=== PATIENT | male | born 1935 | race Caucasian/White ===

== ENCOUNTER 2018-02-11 08:38 | Inpatient (IN) | payer MEDICARE ==
[2018-02-10] MEDS: SODIUM CHLORIDE 0.9% 1000ML 1,000 ML IV SCH (22:00)
[~2018-02-11] VITALS: Ht 177.8 cm; Wt 72.1 kg
[~2018-02-11 08:38] MED LIST: ATENOLOL25 MG PO; PREVACID30 M1 PO; SYNTHROID150 MCG PO; ZOCOR20 MG PO
[2018-02-11] MEDS ORDERED: ONDANSETRON HCL INJ 2 MG/ML VIAL IV STA (08:48)
[2018-02-11] MEDS ORDERED: DICYCLOMINE HCL 20 MG/2 ML VIAL IM ONE (09:00)
[2018-02-11] MEDS ORDERED: SODIUM CHLORIDE 0.9% 1000ML 1,000 ML IV ONE (09:00)
[2018-02-11] MEDS ORDERED: HYDRALAZINE HCL 20 MG/ML VIAL IV ONE ×2 (09:00→10:30)
--- NOTE | 2018-02-11 09:00 | NUR ---
ASSUMED PTS CARE. PT IN ER 6.
[2018-02-11 09:08] LABS: BASOPHILS % 0.2 % (0.0-1.0); EOSINOPHILS % 0.1 % (0.0-6.0); HEMATOCRIT 45.6 % (38.2-49.6); HEMOGLOBIN 15.4 g/dL (14.0-18.0); LYMPHOCYTES # (AUTO) 0.7 (1.0-3.2); LYMPHOCYTES % 3.8 % (18.0-39.1); MEAN CORPUSCULAR HEMOGLOBIN 29.3 pg (28-32); MEAN CORPUSCULAR HGB CONC 33.8 g/dL (31-35); MEAN CORPUSCULAR VOLUME 86.7 fL (81-99); MONOCYTES # (AUTO) 1.1 (0.2-0.8); MONOCYTES % 6.4 % (4.4-11.3); NEUTROPHILS # (AUTO) 15.9 (2.1-6.9); NEUTROPHILS % 89.1 % (38.7-80.0); PLATELET COUNT 277 x10e3/uL (140-360); RED BLOOD COUNT 5.26 x10e6/uL (4.3-5.7)
[2018-02-11 09:30] LABS: ALBUMIN 4.5 g/dL (3.5-5.0); ALBUMIN/GLOBULIN RATIO 1.3 (0.8-2.0); ANION GAP 16.7 mmol/L (8-16); CALCIUM 9.9 mg/dL (8.4-10.2); CREATININE, SERUM 1.56 mg/dL (0.72-1.25); POTASSIUM 3.7 mmol/L (3.5-5.1)
--- NOTE | 2018-02-11 09:56 | Diagnostic Imaging Report ---
Abdomen, 3 views dated 02/11/2017 at 8:52 AM. History: <Abdominal pain>. Findings: Dilated loops of small bowel compatible with a distal small bowel obstruction. Minimal stool in the rectum and right colon. Right upper quadrant clips are present. There no masses or abnormal calcifications. No free air. Degenerative changes of the spine. IMPRESSION: Dilated loops of small bowel compatible with a small bowel obstruction. Signed by: Dr. Freeman Aquino DO on 02/11/2018 9:53 AM
--- NOTE | 2018-02-11 10:25 | NUR ---
PATIENT GIVEN A URINAL FOR URINE SAMPLE
[2018-02-11] MEDS ORDERED: DIATRIZOATE MEGL/DIATRIZOA SOD 30 ML BTL PO ONE (10:38)
[2018-02-11] MEDS ORDERED: IOPAMIDOL 370 MG/ML 200 ML INFUS..BTL INJ ONE (10:55)
[2018-02-11] MEDS ORDERED: SODIUM CHLORIDE 0.9% 50ML 50 ML ONE (10:55)
--- NOTE | 2018-02-11 11:27 | NUR ---
PT HAS TRIED SEVERAL TIMES TO URINATE BUT HAS BEEN UNABLE. SPOKE WITH ERP ABOUT DOING A STRAIGHT CATH IF PT CAN'T GO THIS TIME. HE IS ATTEMPTING TO USE THE URINAL AGAIN. WILL STRAIGHT CATH IF UNSUCESSFUL THIS TIME
[2018-02-11] MEDS ORDERED: PROMETHAZINE 12.5MG/ NACL 0.9% 12.5 MG/50 ML BAG IV ONE (11:30)
--- NOTE | 2018-02-11 11:30 | NUR ---
PT C/O NAUSEA FROM ORAL CONTRAST. NOTIFIED MD AND PHENERGAN ORDERED
--- NOTE | 2018-02-11 11:40 | NUR ---
PT WAS UNABLE TO URINATE. STRAIGHT CATH DONE. 80 ML OF URINE OUTPUT
[2018-02-11 12:39] LABS: BILIRUBIN,URINE NEGATIVE (NEGATIVE); CLARITY,URINE HAZY (CLEAR); COLOR,URINE YELLOW (YELLOW); KETONES,URINE NEGATIVE (NEGATIVE); LEUKOCYTE ESTERASE ,URINE NEGATIVE (NEGATIVE); NITRITE,URINE NEGATIVE (NEGATIVE); PROTEIN,URINE DIPSTICK 1+ (NEGATIVE); URINE UROBILINOGEN 0.2 mg/dL (0.2 - 1)
[2018-02-11 13:08] LABS: BACTERIA,URINE FEW /HPF; EPITHELIAL CELLS,URINE RARE /LPF
[2018-02-11] MEDS ORDERED: SODIUM CHLORIDE 0.9% 1000ML 1,000 ML IV SCH (14:30)
[2018-02-11] MEDS: ERTAPENEM 1GM/NS 100ML 100 ML IV SCH (14:30)
[2018-02-11] MEDS ORDERED: MORPHINE SULFATE 5 MG/ML VIAL IV PRN (14:30)
[2018-02-11] MEDS ORDERED: PROMETHAZINE 12.5MG/ NACL 0.9% 12.5 MG/50 ML BAG IV PRN (14:30)
--- NOTE | 2018-02-11 14:43 | Diagnostic Imaging Report ---
EXAM: CT Abdomen and Pelvis WITH contrast INDICATION: ^SBO ^[id number] ^1225 COMPARISON: Same day abdominal x-ray TECHNIQUE: Abdomen and pelvis were scanned utilizing a multidetector helical scanner from the lung base to the pubic symphysis after administration of IV contrast. Coronal and sagittal reformations were obtained. Dose modulation, iterative reconstruction, and/or weight based adjustment of the mA/kV was utilized to reduce the radiation dose to as low as reasonably achievable. Routine protocol was performed. Scan was performed when during portal venous phase. IV CONTRAST: 100 mL of Isovue-370 ORAL CONTRAST: Gastroview COMPLICATIONS: None RADIATION DOSE: Total DLP: 649.53 mGy*cm Estimated effective dose: (DLP x 0.015 x size factor) mSv CTDIvol has been reviewed. It is below the limits set by the Radiation Protocol Committee (RPC). FINDINGS: LINES and TUBES: None. LOWER THORAX: Cluster of right middle lobe calcified granulomas. Tiny anterior right middle lobe nodule (series 2, image 3). Mild lingular scarring with traction bronchiectasis. HEPATOBILIARY: No focal hepatic lesions. Moderate intra and extrahepatic biliary dilatation. GALLBLADDER: Surgically absent. SPLEEN: No splenomegaly. PANCREAS: No focal masses or ductal dilatation. ADRENALS: No adrenal nodules KIDNEYS/URETERS: Right nephrectomy. No left renal mass or stone. No left hydronephrosis. GI TRACT: Dilated air and fluid-filled small bowel loops throughout the abdomen with collapsed distal ileal and colon. There is transition point in right lower abdomen (series 2, image 46). Appendix is not visualized with certainty. PELVIC ORGANS/BLADDER: Markedly enlarged heterogeneous prostate gland. Bladder is, limiting evaluation. LYMPH NODES: No lymphadenopathy. VESSELS: There is mild atherosclerotic disease in the aorta and major arterial branches. PERITONEUM / RETROPERITONEUM: No free air. Trace ascites. BONES: Degenerative changes of spine. SOFT TISSUES: Small bilateral inguinal hernias, containing ascitic fluid on the left side. IMPRESSION: 1. High-grade small bowel obstruction. 2. Intra and extrahepatic biliary dilatation which could be partially due to reservoir effect and age. 3. Markedly enlarged prostate gland. Signed by: Dr. Nixon Hinkle MD on 02/11/2018 2:40 PM
[2018-02-11] MEDS: MORPHINE SULFATE INJ 4 MG/ML INJ IV PRN ×2 (14:50→21:37)
[2018-02-11] MEDS: SODIUM CHLORIDE 0.9% 1000ML 1,000 ML IV SCH ×2 (15:24→22:00)
[2018-02-11] MEDS ORDERED: LIDOCAINE JELLY 2% 10ML URO-JET ONE (15:26)
[2018-02-11] MEDS ORDERED: BENZOCAINE/TETRACAINE/BUTAMBEN AERO SPRAY 56 GM CAN ONE (15:26)
[2018-02-11] MEDS ORDERED: SODIUM CHLORIDE FLUSH 10 ML SYR INJ PRN (15:30)
--- OUTSIDE RECORDS SUMMARY | 2018-02-11 15:39 | XMS REPORT ---
Author Author [facility] Address Unknown Phone Unavailable Care Team Providers [employer] Worker Name Role Phone Pauline PRIDE Unavailable Unavailable Problems This patient has no known problems. Allergies, Adverse Reactions, Alerts This patient has no known allergies or adverse reactions. Medications This patient has no known medications. Results Test Description Test Time Test Comments Text Results Atomic Results Result Comments CT ABDOMEN/PELVIS W 2018-02-11 14:00:00 [place] [address] Patient Name: BENJAMIN MURRAY MR #: [id number] : 1935 Age/Sex: 82/M Req #: [id number] Adm Physician: Ordered by: NICK PRDIE MD Report #: [id number] Location: ER Room/Bed: Procedure: [id number] CT/CT ABDOMEN/PELVIS W Exam Date: 02/11/18 Exam Time: 1225 REPORT STATUS: Signed EXAM: CT Abdomen and Pelvis WITH contrast MACARIO CATION: SBO [id number] 1225 COMPARISON: Same day abdominal x-ray TECHNIQUE: Abdomen and pelvis were scanned utilizing a multidetector helical scanner from the lung base to the pubic symphysis after administration of IV contrast. Coronal and sagittal reformations were obtained. Dose modulation, iterative reconstruction, and/or weight based adjustment of the mA/kV was utilized to reduce the radiation dose to as low as reasonably achievable. Routine protocol was performed. Scan was performed when during portal venous phase. IV CONTRAST: 100 mL of Isovue-370 ORAL CONTRAST: Gastroview COMPLICATIONS: None RADIATION DOSE: Total DLP: 649.53 mGy*cm Estimated effective dose: (DLP x 0.015 x size factor) mSv CTDIvol has been reviewed. It is below the limits set by the Radiation Protocol Committee (RPC). FINDINGS: LINES and TUBES: None. LOWER THORAX: Cluster of right middle lobe calcified granulomas. Tiny anterior right middle lobe nodule (series 2, image 3). Mild lingular scarring with traction bronchiectasis. HEPATOBILIARY: No focal hepatic lesions. Moderate intra and extrahepatic biliary dilatation. GALLBLADDER: Surgically absent. SPLEEN: No splenomegaly. PANCREAS: No focal masses or ductal dilatation. ADRENALS: No adrenal nodules KIDNEYS/URETERS: Right nephrectomy. No left renal mass or stone. No left hydronephrosis. GI TRACT: Dilated air and fluid-filled small bowel loops throughout the abdomen with collapsed distal ileal and colon. There is transition point in right lower abdomen (series 2, image 46). Appendix is not visualized with certainty. PELVIC ORGANS/BLADDER: Markedly enlarged heterogeneous prostate gland. Bladder is, limiting evaluation. LYMPH NODES: No lymphadenopathy. VESSELS: There is mild atherosclerotic disease in the aorta and major arterial branches. PERITONEUM / RETROPERITONEUM: No free air. Trace ascites. BONES: Degenerative changes of spine. SOFT TISSUES: Small bilateral inguinal hernias, containing ascitic fluid on the left side. IMPRESSION: 1. High-grade small bowel obstruction. 2. Intra and extrahepatic biliary dilatation which could be partially due to reservoir effect and age. 3. Markedly enlarged prostate gland. Signed by: Dr. Nixon Bateman MD on 02/11/2018 2:40 PM Dictated By: NIXON BATEMAN MD 1440 Transcribed By: TITI on 02/11/18 1440 COPY TO: NICK PRIDE MD ABDOMEN 2 VIEW 2018-02-11 09:50:00 [place] [address] Patient Name: BENJAMIN MURRAY MR #: [id number] : 1935 Age/Sex: 82/M Req #: [id number] Adm Physician: Ordered by: NICK PRIDE MD Report #: [id number] Location: ER Room/Bed: Procedure: [id number] DX/ABDOMEN 2 VIEW Exam Date: 02/11/18 Exam Time: 909 REPORT STATUS: Signed Abdomen, 3 views dated 02/11/2017 at 8:52 AM. History: <Abdominal pain>. Findings: Dilated loops of small bowel compatible with a distal small bowel obstruction. Minimal stool in the rectum and right colon. Right upper quadrant clips are present. There no masses or abnormal calcifications. No free air. Degenerative changes of the spine. IMPRESSION: Dilated loops of small bowel compatible with a small bowel obstruction. Signed by: Dr. Henok Aquino DO on 02/11/2018 9:53 AM Dictated By: HENOK AQUINO DO 2 Transcribed By: TITI on 02/11/18952 COPY TO: NICK PRIDE MD
[2018-02-11] MEDS: SODIUM CHLORIDE 0.9% 250ML IRRIG IR SCH ×2 (16:00→22:37)
--- NOTE | 2018-02-11 17:01 | Diagnostic Imaging Report ---
EXAM: Abdomen 1 View INDICATION: ^NG Tube placement ^[id number] ^1550 COMPARISON: Same day CT and x-ray. IMPRESSION: Dedicated x-ray to confirm nasogastric tube placement. No definite nasogastric tube is visualized. Linear density, extending from medial left lower lung field to the left upper quadrant, less likely to represent nasogastric tube. Please correlate clinically and consider repositioning of nasogastric tube and follow-up x-ray. There is also partial visualization of a tube overlying the left hemithorax, likely external to patient. Signed by: Dr. Nixon Hinkle MD on 02/11/2018 4:57 PM
[2018-02-11] MEDS ORDERED: BENZOCAINE 20% SPR 60 ML CAN MT PRN (17:30)
[2018-02-11 18:48] VITALS: BP 153/67
--- NOTE | 2018-02-11 19:07 | Consultation ---
DATE OF CONSULTATION: February 11, 2018 CHIEF COMPLAINT: Abdominal pain, vomiting. HISTORY OF PRESENT ILLNESS: The patient is an 82-year-old male with 1 day history of periumbilical abdominal pain, cramping in nature with several episodes of vomiting without hematemesis. Last bowel movement was yesterday. He denies fevers or chills. Patient related that in the last 6 months, he has had increased abdominal cramps and no vomiting. PAST MEDICAL HISTORY: Significant for hypertension, hyperlipidemia, hypothyroidism, GERD. SURGICAL HISTORY: Positive for cholecystectomy, appendectomy, right nephrectomy, thyroid cancer surgery, and gastrostomy tube placement. ALLERGIES: PATIENT IS ALLERGIC TO PENICILLIN. REVIEW OF SYSTEMS: No chest pain or shortness of breath. PHYSICAL EXAMINATION VITALS: Stable. Afebrile. GENERAL: He is awake, alert and in moderate discomfort. HEENT: Sclerae anicteric. NECK: Supple. LUNGS: Clear. HEART: Regular rate and rhythm. ABDOMEN: Distended with some guarding in the periumbilical area without rebound. EXTREMITIES: Without cyanosis or edema. LABORATORY STUDIES: White cell count 17, hemoglobin of 15, creatinine of 1.5. CT of the abdomen showed high-grade obstruction with transition point in right lower quadrant. ASSESSMENT: Recurrent small bowel obstruction likely secondary to adhesions. PLAN: NG tube placement with IV hydration, repeat abdominal x-ray and exam. Job#: [id number] RTY
[2018-02-11 19:35] VITALS: BP 146/67
--- NOTE | 2018-02-11 21:05 | NUR ---
Assisted pt to the restroom. Pt voided and had loose brown bm at this time.
--- NOTE | 2018-02-11 21:30 | NUR ---
Assisted pt to the restroom. Pt with multiple loose brown bowel movements at this time.
[2018-02-12] VITALS (9 sets, daily range): BP systolic 111–146; BP diastolic 58–65
[2018-02-12] MEDS: SODIUM CHLORIDE 0.9% 250ML IRRIG IR SCH ×2 (03:45→05:00)
[2018-02-12 06:12] LABS: BASOPHILS % 0.4 % (0.0-1.0); EOSINOPHILS % 0.4 % (0.0-6.0); HEMATOCRIT 36.5 % (38.2-49.6); HEMOGLOBIN 12.3 g/dL (14.0-18.0); LYMPHOCYTES # (AUTO) 1.6 (1.0-3.2); LYMPHOCYTES % 15.5 % (18.0-39.1); MEAN CORPUSCULAR HEMOGLOBIN 29.4 pg (28-32); MEAN CORPUSCULAR HGB CONC 33.7 g/dL (31-35); MEAN CORPUSCULAR VOLUME 87.3 fL (81-99); MONOCYTES % 9.6 % (4.4-11.3); NEUTROPHILS # (AUTO) 7.7 (2.1-6.9); NEUTROPHILS % 73.5 % (38.7-80.0); PLATELET COUNT 208 x10e3/uL (140-360); RED BLOOD COUNT 4.18 x10e6/uL (4.3-5.7); RED CELL DISTRIBUTION WIDTH 14.5 % (11.7-14.4)
[2018-02-12 06:39] LABS: ALBUMIN/GLOBULIN RATIO 1.2 (0.8-2.0); ANION GAP 11.5 mmol/L (8-16); CALCIUM 7.9 mg/dL (8.4-10.2); CREATININE, SERUM 1.17 mg/dL (0.72-1.25); POTASSIUM 3.5 mmol/L (3.5-5.1)
--- NOTE | 2018-02-12 07:33 | Progress Note ---
DATE: SUBJECTIVE: Patient is here for small bowel obstruction, an 82-year-old male, came in with abdominal pain. Currently, pain is better. Patient continues to have some movement in the bowel he says and also flatus present. Patient's pain is controlled. PHYSICAL EXAMINATION VITAL SIGNS: Temperature is 97, afebrile, T-max of 98.3, pulse of 67, respirations of 20, and blood pressure 133/63 with a pulse oximetry of 96% on 2 liters of oxygen. GENERAL: Patient is alert and oriented x3. NG tube for suction. CVS: S1 and S2 normal. Regular rate and rhythm. LUNGS: Clear to auscultation bilaterally. ABDOMEN: Nontender and nondistended. Bowel sounds are very sluggish. EXTREMITIES: No clubbing. No cyanosis. No edema. IMAGING STUDIES: CT scan shows high-grade small bowel obstruction, intra and extrahepatic biliary dilatation, and markedly enlarged prostate gland. LABORATORY VALUES: Patient's white count was 17,000, down to 10.48; left shift is better 89.1 to 73.5 of neutrophils. Sodium is 139, potassium is 3.5, BUN of 20, creatinine of 1.17, and glucose of 95. ALT, AST, and alk phos has been normal. Lipase is 6. ASSESSMENT AND PLAN 1. Small bowel obstruction: The patient will continue on nasogastric tube. We will keep him n.p.o. We will have a KUB today to further assess his small bowel obstruction. 2. Acute kidney injury, resolved. 3. Hypertension: We will continue monitoring his blood pressures. If needed, IV hydralazine will be given. MEDICATIONS: At this time, patient is on ertapenem q.4h. and morphine sulfate for pain control. For further information, look into the chart. Further recommendations per clinical course. Job#: [id number] LIUDMILA
--- NOTE | 2018-02-12 08:04 | NUR ---
Pt received in bed with eyes open. Pt is aox4 and able to verbalize needs. Complains of soreness to back of throat r/t ngtube placement. Denies any nausea at this time. Continues on IVF NS@125ml/hr and well tolerated.
--- NOTE | 2018-02-12 08:07 | Diagnostic Imaging Report ---
Abdomen/KUB INDICATION: ^SBO ^[id number] ^0720 COMPARISON: CT and abdominal x-ray 02/11/2018. FINDINGS: Portable, supine image obtained at 0708 hours. Medical Devices: No enteric tube is visualized. Cholecystectomy clips in the right upper quadrant. Bowel: Gaseous dilatation of the small bowel has improved. There is barium throughout the colon. The colon is not dilated. No pneumatosis. Calcifications: No calcifications over the renal shadows or along the expected course of the ureters. Organomegaly: None Lung bases: Clear There is excreted contrast in the bladder from CT. Bones: Unremarkable IMPRESSION: Improved small bowel dilatation. Passage of barium into the large bowel suggestive of partial small bowel obstruction. Signed by: Dr. Shala Reyes MD on 02/12/2018 8:04 AM
--- NOTE | 2018-02-12 11:00 | NUR ---
NGtube removed per physician orders. Pt started on clear liquid diet and tolerated well.
[2018-02-12] MEDS: ERTAPENEM 1GM/NS 100ML 100 ML IV SCH (14:30)
[2018-02-12] MEDS ORDERED: ASPIRIN CHEW81 MG PO (21:21)
--- NOTE | 2018-02-12 22:10 | NUR ---
Provided some jello per pt's request. Pt tolerating clear liquid diet well without nausea/vomiting. Call light within reach. Will continue to monitor.
[2018-02-13] VITALS: BP 128/59
--- NOTE | 2018-02-13 00:33 | NUR ---
Assisted pt to the restroom. Pt with unsteady gait. Pt voided.
[2018-02-13 05:19] VITALS: BP 103/55
[2018-02-13] MEDS: SODIUM CHLORIDE 0.9% 1000ML 1,000 ML IV SCH ×2 (06:10→07:24)
[2018-02-13 06:39] LABS: BASOPHILS % 0.2 % (0.0-1.0); EOSINOPHILS % 0.3 % (0.0-6.0); HEMOGLOBIN 11.8 g/dL (14.0-18.0); LYMPHOCYTES # (AUTO) 1.4 (1.0-3.2); MEAN CORPUSCULAR HEMOGLOBIN 29.4 pg (28-32); MEAN CORPUSCULAR HGB CONC 33.7 g/dL (31-35); MEAN CORPUSCULAR VOLUME 87.3 fL (81-99); MONOCYTES # (AUTO) 0.8 (0.2-0.8); MONOCYTES % 6.4 % (4.4-11.3); NEUTROPHILS # (AUTO) 9.6 (2.1-6.9); NEUTROPHILS % 80.7 % (38.7-80.0); PLATELET COUNT 174 x10e3/uL (140-360); RED BLOOD COUNT 4.01 x10e6/uL (4.3-5.7); RED CELL DISTRIBUTION WIDTH 14.3 % (11.7-14.4)
[2018-02-13 06:54] LABS: ALANINE AMINOTRANSFERASE 14 IU/L (0-55); ALBUMIN 2.6 g/dL (3.5-5.0); ALBUMIN/GLOBULIN RATIO 1.2 (0.8-2.0); ALKALINE PHOSPHATASE 45 IU/L (40-150); ANION GAP 10.3 mmol/L (8-16); BLOOD UREA NITROGEN 15 mg/dL (7-26); BUN/CREATININE RATIO 14 (6-25); CALCIUM 7.5 mg/dL (8.4-10.2); CARBON DIOXIDE 25 mmol/L (22-29); CHLORIDE 105 mmol/L (98-107); CREATININE, SERUM 1.05 mg/dL (0.72-1.25); EST GLOMERULAR FILTRATION RATE > 60 ML/MIN (60-); GLUCOSE 101 mg/dL (74-118); MAGNESIUM 1.8 MG/DL (1.3-2.1); POTASSIUM 3.3 mmol/L (3.5-5.1); SODIUM 137 mmol/L (136-145)
[2018-02-13] MEDS ORDERED: POTASSIUM CHLORIDE 20 MEQ TAB CR PO ONE (07:30)
[2018-02-13 08:00] VITALS: BP 106/55
[2018-02-13] MEDS: PANTOPRAZOLE SOD 40 MG TABEC PO SCH (08:05)
[2018-02-13] MEDS: LEVOTHYROXINE SODIUM 75 MCG TAB PO SCH (08:05)
[2018-02-13 08:20] VITALS: BP 106/55
--- NOTE | 2018-02-13 08:37 | Progress Note ---
DATE: SUBJECTIVE: Patient is here for small bowel obstruction. Patient's NG tube had been removed. He has been started on some clear liquid diet. He has been tolerating it without any problems. He has had no bowel movements, but good flatus. Patient currently has no other complaints. PHYSICAL EXAMINATION VITAL SIGNS: Temperature is 97.6, T-max is 100.2, pulse of 61, respirations of 18, blood pressure is 103/55. HEENT: Normocephalic, atraumatic. Pupils are reactive to light and accommodation. CVS: S1, S2 normal. Regular rate and rhythm. ABDOMEN: Nontender, nondistended. Bowels sounds are positive. EXTREMITIES: No clubbing, no cyanosis, and no edema. LABORATORY VALUES: White count is 11,000, hemoglobin of 11.8, hematocrit of 35.8. Neutrophil count is on the down side. Chemistries; sodium 137, potassium of 3.3, BUN 15, creatinine of 1.05, calcium is 7.49, magnesium 1.9, bilirubin has gone up to 1.5. ALT, AST, and alkaline phosphatase have been normal. ASSESSMENT AND PLAN 1. Small bowel obstruction, status post nasogastric tube, doing better. 2. Acute kidney injury, resolved. 3. Hypertension. Continue with cardiovascular medications. 4. Hypothyroidism. We will restart his medication with sips of water. Patient currently is also on ertapenem and also morphine for pain control. We will continue with those and the last KUB done yesterday shows improved small bowel obstruction. Patient can be advanced to a full liquid diet today. Further recommendation per clinical course. We will continue monitoring the patient and restart his home medications with sips of water. Job#: [id number] NANCY
[2018-02-13] MEDS: ATENOLOL 50 MG TAB PO SCH (09:00)
[2018-02-13] MEDS: ERTAPENEM 1GM/NS 100ML 100 ML IV SCH (14:19)
[2018-02-13 17:31] VITALS: BP 141/67
[2018-02-13 21:49] VITALS: BP 125/61
[2018-02-14 01:11] VITALS: BP 158/70
[2018-02-14 05:38] VITALS: BP 153/69
[2018-02-14 05:52] LABS: BASOPHILS % 0.2 % (0.0-1.0); EOSINOPHILS # (AUTO) 0.2 (0.0-0.4); EOSINOPHILS % 4.1 % (0.0-6.0); HEMATOCRIT 35.8 % (38.2-49.6); HEMOGLOBIN 12.1 g/dL (14.0-18.0); LYMPHOCYTES # (AUTO) 1.2 (1.0-3.2); LYMPHOCYTES % 20.8 % (18.0-39.1); MEAN CORPUSCULAR HEMOGLOBIN 29.6 pg (28-32); MEAN CORPUSCULAR HGB CONC 33.8 g/dL (31-35); MEAN CORPUSCULAR VOLUME 87.5 fL (81-99); MONOCYTES # (AUTO) 0.7 (0.2-0.8); MONOCYTES % 12.4 % (4.4-11.3); NEUTROPHILS # (AUTO) 3.6 (2.1-6.9); NEUTROPHILS % 62.2 % (38.7-80.0); PLATELET COUNT 174 x10e3/uL (140-360); RED BLOOD COUNT 4.09 x10e6/uL (4.3-5.7); RED CELL DISTRIBUTION WIDTH 13.9 % (11.7-14.4)
[2018-02-14 06:13] LABS: ANION GAP 10.5 mmol/L (8-16); BLOOD UREA NITROGEN 15 mg/dL (7-26); BUN/CREATININE RATIO 15 (6-25); CALCIUM 7.9 mg/dL (8.4-10.2); CARBON DIOXIDE 27 mmol/L (22-29); CHLORIDE 109 mmol/L (98-107); CREATININE, SERUM 1.03 mg/dL (0.72-1.25); EST GLOMERULAR FILTRATION RATE > 60 ML/MIN (60-); GLUCOSE 104 mg/dL (74-118); POTASSIUM 3.5 mmol/L (3.5-5.1); SODIUM 143 mmol/L (136-145)
--- NOTE | 2018-02-14 08:20 | NUR ---
DISCHARGE INSTRUCTIONS GIVEN, PT VERBALIZED UNDERSTANDING. PT IV DC. PRESSURE DRESSING APPLIED AND TAPED. PT IS READY FOR DC. WILL EAT BREAKFAST FIRST
[2018-02-14] MEDS: PANTOPRAZOLE SOD 40 MG TABEC PO SCH (08:21)
[2018-02-14] MEDS: LEVOTHYROXINE SODIUM 75 MCG TAB PO SCH (08:21)
[2018-02-14] MEDS: ATENOLOL 50 MG TAB PO SCH (08:22)
[2018-02-14 08:47] VITALS: BP 165/73
[2018-02-14 09:22] VITALS: BP 165/73
--- NOTE | 2018-02-14 09:22 | NUR ---
PT OFF UNIT VIA WHEEL CHAIR TO HOME
== END 2018-02-14 09:25 | disposition home or self-care (01) | DRG 389 ==
LOC: ER 08:38 → ERHOLD 15:37 → MED/SURG 18:13
PROVIDERS: ADMIT Internal Medicine; ATTEND Internal Medicine
DX: K56.50 Intestinal adhesions [bands], unspecified as to partial versus complete obstruction (principal); N17.9 Acute kidney failure, unspecified; I12.9 Hypertensive chronic kidney disease with stage 1 through stage 4 chronic kidney disease, or unspecified chronic kidney disease; N18.3 Chronic kidney disease, stage 3 (moderate); E03.9 Hypothyroidism, unspecified; K21.9 Gastro-esophageal reflux disease without esophagitis
CPT/HCPCS: 36415; 74018; 74019; 74177; 80048; 80053; 81001; 83690; 83735; 84484; 85025; 96361; 99284; J0360; J0500; J2270; J2405; J2550; J7030; Q9967

== ENCOUNTER 2019-01-19 12:28 | Emergency (ER) | payer MEDICARE ==
[~2019-01-19] VITALS: Ht 177.8 cm; Wt 72.1 kg
[~2019-01-19 12:28] MED LIST changes: +ASPIRIN CHEW81 MG PO
--- NOTE | 2019-01-19 12:37 | NUR ---
DR ALEXANDER PRESENT IN TRIAGE WITH ULTRASOUND TO CHECK FOR URINARY RETENTION
[2019-01-19 13:40] VITALS: BP 139/59
== END 2019-01-19 13:45 | disposition home or self-care (01) ==
LOC: ER 12:28
DX: R33.9 Retention of urine, unspecified (principal); N40.1 Benign prostatic hyperplasia with lower urinary tract symptoms
CPT/HCPCS: 99283

== ENCOUNTER 2019-01-25 22:59 | Emergency (ER) | payer MEDICARE ==
[~2019-01-25] VITALS: Ht 177.8 cm; Wt 72.1 kg
[2019-01-26 02:25] LABS: CLARITY,URINE CLOUDY (CLEAR); COLOR,URINE AMBER (YELLOW); KETONES,URINE NEGATIVE (NEGATIVE); LEUKOCYTE ESTERASE ,URINE TRACE (NEGATIVE); NITRITE,URINE POSITIVE (NEGATIVE); PROTEIN,URINE DIPSTICK 2+ (NEGATIVE); URINE UROBILINOGEN 0.2 mg/dL (0.2 - 1)
[2019-01-26 02:26] LABS: BACTERIA,URINE MANY /HPF; BILIRUBIN,URINE 1+ (NEGATIVE); EPITHELIAL CELLS,URINE FEW /LPF; RBC,URINE >50 /HPF (0-5); WBC,URINE (MAN) 21-50 /HPF (0-5)
[2019-01-26] MEDS ORDERED: CEFTRIAXONE SOD 1 GM VIAL IM ONE (02:30)
[2019-01-26] MEDS ORDERED: CEFTRIAXONE SOD 1 GM VIAL ONE (02:42)
[2019-01-26 03:03] VITALS: BP 135/76
== END 2019-01-26 03:13 | disposition home or self-care (01) ==
LOC: ER 22:59
DX: R33.9 Retention of urine, unspecified (principal); N40.1 Benign prostatic hyperplasia with lower urinary tract symptoms; N30.91 Cystitis, unspecified with hematuria; I10 Essential (primary) hypertension; E03.9 Hypothyroidism, unspecified; K21.9 Gastro-esophageal reflux disease without esophagitis; Z85.850 Personal history of malignant neoplasm of thyroid
CPT/HCPCS: 81001; 87086; 87186; 99282; J0696

== ENCOUNTER 2019-02-24 18:41 | Emergency (ER) | payer MEDICARE ==
[~2019-02-24] VITALS: Ht 177.8 cm; Wt 72.1 kg
--- NOTE | 2019-02-24 19:55 | NUR ---
PTS BLADDER SCANNED AT THIS TIME, PT FOUND TO HAVE GREATER THAN 999CC OF URINE IN BLADDER.
[2019-02-24] MEDS ORDERED: LIDOCAINE JELLY 2% 10ML URO-JET TOP ONE (20:00)
--- NOTE | 2019-02-24 20:15 | NUR ---
20F COUDE PLACED AT THIS TIME, PT TOLERATED WELL. 600 CC CLEAR YELLOW URINE OUT, DR PEOPLES NOTIFIED.
[2019-02-24 20:22] LABS: BASOPHILS % 0.1 % (0.0-1.0); EOSINOPHILS % 0.3 % (0.0-6.0); HEMATOCRIT 39.7 % (38.2-49.6); HEMOGLOBIN 13.3 g/dL (14.0-18.0); LYMPHOCYTES # (AUTO) 1.3 (1.0-3.2); LYMPHOCYTES % 12.3 % (18.0-39.1); MEAN CORPUSCULAR HGB CONC 33.5 g/dL (31-35); MEAN CORPUSCULAR VOLUME 86.5 fL (81-99); MONOCYTES # (AUTO) 1.1 (0.2-0.8); MONOCYTES % 10.3 % (4.4-11.3); NEUTROPHILS # (AUTO) 7.8 (2.1-6.9); NEUTROPHILS % 76.6 % (38.7-80.0); PLATELET COUNT 221 x10e3/uL (140-360); RED BLOOD COUNT 4.59 x10e6/uL (4.3-5.7); RED CELL DISTRIBUTION WIDTH 14.4 % (11.7-14.4)
[2019-02-24 20:37] LABS: ANION GAP 14.8 mmol/L (8-16); CALCIUM 9.4 mg/dL (8.4-10.2); CREATININE, SERUM 1.29 mg/dL (0.72-1.25); POTASSIUM 3.8 mmol/L (3.5-5.1)
[2019-02-24 20:38] LABS: CLARITY,URINE CLEAR (CLEAR); COLOR,URINE YELLOW (YELLOW)
[2019-02-24 20:39] LABS: BILIRUBIN,URINE NEGATIVE (NEGATIVE); EPITHELIAL CELLS,URINE FEW /LPF; KETONES,URINE NEGATIVE (NEGATIVE); LEUKOCYTE ESTERASE ,URINE NEGATIVE (NEGATIVE); NITRITE,URINE NEGATIVE (NEGATIVE); PROTEIN,URINE DIPSTICK NEGATIVE (NEGATIVE); RBC,URINE 0-5 /HPF (0-5); URINE UROBILINOGEN 0.2 mg/dL (0.2 - 1); WBC,URINE (MAN) 0-5 /HPF (0-5)
--- NOTE | 2019-02-24 21:39 | Diagnostic Imaging Report ---
EXAM: CT Abdomen and Pelvis WITHOUT contrast INDICATION: ^flank pain ^[id number] ^2101 ^Y COMPARISON: CT dated 01/05/2019 TECHNIQUE: Abdomen and pelvis were scanned utilizing a multidetector helical scanner from the lung base to the pubic symphysis without administration of IV contrast. Absence of intravenous contrast decreases sensitivity for detection of focal lesions and vascular pathology. Coronal and sagittal reformations were obtained. Routine protocol was performed. IV CONTRAST: None ORAL CONTRAST: None COMPLICATIONS: None RADIATION DOSE: Total DLP: 204.62 mGy*cm Estimated effective dose: (DLP x 0.015 x size factor) mSv CTDIvol has been reviewed. It is below the limits set by the Radiation Protocol Committee (RPC). FINDINGS: LINES and TUBES: Miguel catheter. LOWER THORAX: Bibasilar mild bronchiectasis, patchy, groundglass airspace opacities. HEPATOBILIARY: Unenhanced liver is unremarkable. Mild to moderate intra and extrahepatic biliary dilatation. Common bile duct is distended up to 1.3 cm. GALLBLADDER: Surgically absent. SPLEEN: No splenomegaly. PANCREAS: No focal masses or ductal dilatation. ADRENALS: No adrenal nodules KIDNEYS/URETERS: Right nephrectomy. Limited for evaluation of left renal parenchyma without intravenous contrast. No left renal stone or hydronephrosis. Mildly dilated left renal pelvis. GI TRACT: No abnormal distention, wall thickening, or evidence of bowel obstruction. Appendix is not visualized. Small hiatal hernia. PELVIC ORGANS/BLADDER: Markedly enlarged prostate. Bladder is collapsed by a Miguel catheter in place, containing moderate amount of air. Pelvic phleboliths. LYMPH NODES: No lymphadenopathy. VESSELS: There is moderate atherosclerotic disease in the aorta and major arterial branches. PERITONEUM / RETROPERITONEUM: No free air or fluid. BONES: No acute osseous abnormality. Grade 1 retrolisthesis of L5 in relation to L4. Degenerative changes of the bilateral hips. SOFT TISSUES: Small fat-containing left inguinal hernia. IMPRESSION: 1. Bilateral lower lung patchy and groundglass airspace opacities, representing infectious/inflammatory process. 2. No left nephrolithiasis or evidence of obstructive urolithiasis. 3. Redemonstration of markedly enlarged prostate. Bladder is collapsed by a Miguel catheter in place, limiting evaluation. 4. Not significantly changed biliary dilatation, which could be due to postcholecystectomy reservoir effect. Signed by: Dr. Nixon Hinkle MD on 02/24/2019 9:37 PM
[2019-02-24] MEDS ORDERED: ACETAMINOPHEN 325 MG TAB ONE (23:43)
[2019-02-25] MEDS ORDERED: ACETAMINOPHEN 325 MG TAB PO ONE
== END 2019-02-25 00:17 | disposition home or self-care (01) ==
LOC: ER 18:41
DX: R30.0 Dysuria (principal); R33.9 Retention of urine, unspecified; N40.1 Benign prostatic hyperplasia with lower urinary tract symptoms; I10 Essential (primary) hypertension; E78.5 Hyperlipidemia, unspecified; Z85.850 Personal history of malignant neoplasm of thyroid
CPT/HCPCS: 36415; 51700; 51702; 74176; 80048; 81001; 85025; 87086; 99284